=== PATIENT | male | born 1970 | race Caucasian/White ===

== ENCOUNTER 2019-12-24 07:33 | Emergency (ER) | payer BC ==
--- NOTE | 2019-12-24 08:17 | EDM.PDOC ---
ED HPI GENERAL MEDICAL PROBLEM - General Chief Complaint: Neurological Problem Stated Complaint: POSSIBLE STROKE OR MS ATTACK Time Seen by Provider: 12/24/19 08:05 Source of Information: Reports: Patient History Limitations: Reports: No Limitations - History of Present Illness INITIAL COMMENTS - FREE TEXT/NARRATIVE: 49-year-old male arrives with 2 complaints, the first is that he had a sudden pain and muscle spasm in his right arm starting 2 hours ago, which seems to be getting better. He has metastatic renal cell carcinoma as well as multiple sclerosis and was concerned he may have a "stroke". His symptoms were isolated to his right arm. He now has near full range of motion, where earlier it was painful and his hand seem to be stuck in a flexed position. He also has a painful lump on his back for the last 1 to 2 weeks that he wants looked at Onset: Sudden Duration: Hour(s): (Right arm symptoms started 2 hours ago) Generalized Pain Score (Numeric/FACES): 7 - Related Data Allergies Allergy/AdvReac Type Severity Reaction Status Date / Time Penicillins Allergy Cannot Verified 12/24/19 07:49 Remember Home Meds: Home Meds Baclofen 10 mg PO BID 12/24/19 [History] Cabozantinib S-Malate [Cabometyx] 40 mg PO DAILY 12/24/19 [History] Enoxaparin [Lovenox] 150 mg SUBCUT BID 12/24/19 [History] Furosemide [Lasix] 20 mg PO DAILY 12/24/19 [History] Quinapril HCl 40 mg PO DAILY 12/24/19 [History] amLODIPine [Norvasc] 10 mg PO DAILY 12/24/19 [History] oxyCODONE HCl [Oxycodone HCl] 10 mg PO Q6H PRN 12/24/19 [History] Past Medical History Cardiovascular History: Reports: Blood Clots/VTE/DVT, Hypertension, [place] Respiratory History: Reports: PE Genitourinary History: Reports: Other (See Below) Other Genitourinary History: kidney cancer Musculoskeletal History: Reports: Fracture Neurological History: Reports: MS Endocrine/Metabolic History: Reports: Obesity/BMI 30+ Immunologic History: Reports: Other (See Below) Other Immunologic History: chemo for cancer Oncologic (Cancer) History: Reports: Renal - Past Surgical History GI Surgical History: Reports: Cholecystectomy Social & Family History - Tobacco Use Smoking Status *Q: Never Smoker - Caffeine Use Caffeine Use: Reports: Tea - Recreational Drug Use Recreational Drug Use: No ED ROS GENERAL - Review of Systems Review Of Systems: See Below Constitutional: Reports: Malaise. Denies: Fever, Chills HEENT: Denies: Vision Change Respiratory: Denies: Shortness of Breath Cardiovascular: Denies: Chest Pain, Palpitations GI/Abdominal: Denies: Abdominal Pain, Nausea, Vomiting : Reports: Other (Metastatic renal cell carcinoma) Skin: Reports: Other (Painful lump on his left back) Neurological: Denies: Dizziness, Headache Hematologic/Lymphatic: Reports: Other (On Lovenox, history of PE) ED EXAM, GENERAL - Physical Exam Exam: See Below Exam Limited By: No Limitations General Appearance: Alert, No Apparent Distress Eye Exam: Bilateral Eye: EOMI Head: Atraumatic, Other (Does have some psoriasis at the posterior scalp line) Neck: Supple, Non-Tender Respiratory/Chest: No Respiratory Distress, Lungs Clear Extremities: Other (The right arm now has near full range of motion and only mild discomfort. He is able to grasp with some weakness. No palpation tenderness to the forearm.) Skin Exam: Other (Patient has a 4 cm raised reddened tender lump on the left back over the scapula) Course - Vital Signs Last Recorded V/S: Last Vital Signs Temp 96.8 F L 12/24/19 07:59 Pulse 58 L 12/24/19 07:59 Resp 18 12/24/19 07:59 BP 145/67 H 12/24/19 07:59 Pulse Ox 98 12/24/19 07:59 - Orders/Labs/Meds Meds: Medications Discontinued Medications Generic Name Dose Route Start Last Admin Trade Name Carla PRN Reason Stop Dose Admin Bacitracin 1 dose 12/24/19 08:36 12/24/19 09:08 Bacitracin Oint 1 Gm TOP 12/24/19 08:37 1 dose ONETIME ONE Administration Lidocaine HCl 5 ml 12/24/19 08:14 12/24/19 08:20 Xylocaine-Mpf 1% INJECT 12/24/19 08:15 5 ml ONETIME ONE Administration - Re-Assessments/Exams Free Text/Narrative Re-Assessment/Exam: 12/24/19 08:48 Reassured the patient that his arm symptoms are not typical of a stroke and more of a peripheral muscle spasm or nerve irritation. He is improving rapidly so no further evaluation is needed. I did sterilize the painful lump on his back with Betadine, infiltrated with lidocaine, and attempt to drain the mass with a #11 scalpel. Unfortunately it was solid, so this is possibly a local metastatic tumor or focus of cellulitis, bacitracin was placed over the wound and he will be placed on clindamycin for the next 5 days. He will recheck with his regular doctors when home tomorrow. Warm compresses to the area may be beneficial. Departure - Departure Time of Disposition: 09:25 Disposition: Home, Self-Care 01 Clinical Impression: Mass of skin, superficial, localized, Right upper limb pain - Discharge Information Instructions: Pain Without a Known Cause Referrals: Kylah Bolanos PA-C [Primary Care Provider] - Forms: ED Department Discharge Care Plan Goals: Take clindamycin 3 times a day as directed for 5 days, warm moist compresses to the reddened area on your back may be helpful. Recheck with your regular doctors when home. Sepsis Event Note (ED) - Evaluation Sepsis Screening Result: No Definite Risk - Focused Exam Vital Signs: Vital Signs Temp Pulse Resp BP Pulse Ox 12/24/19 07:59 96.8 F L 58 L 18 145/67 H 98
[2019-12-24] MEDS ORDERED: Bacitracin Oint 1 GM U/D Packet TOP ONE (08:36)
[2019-12-24] MEDS ORDERED: Bacitracin Oint 1 GM U/D Packet ONE (09:05)
== END 2019-12-24 09:25 | disposition home or self-care (01) ==
LOC: JP.ED 07:33
DX: R22.2 Localized swelling, mass and lump, trunk (principal); M79.601 Pain in right arm; I10 Essential (primary) hypertension; I25.2 Old myocardial infarction; G35 Multiple sclerosis; E66.9 Obesity, unspecified; Z68.41 Body mass index [BMI] 40.0-44.9, adult; Z88.0 Allergy status to penicillin; Z86.718 Personal history of other venous thrombosis and embolism; Z79.01 Long term (current) use of anticoagulants
CPT/HCPCS: 99283; J2001; 10060